=== PATIENT | female | born 1940 | race Caucasian/White ===

== ENCOUNTER 2018-02-12 12:40 | Outpatient (CLI) | payer OTHER, SELFPAY ==
--- NOTE | 2018-02-12 12:44 | DI.RAD.S_ITS ---
PROCEDURE: PAIN L INTERLAMINAR/CAUDAL INJ INDICATIONS: Spinal stenosis with lower extremity neurogenic claudication FINDINGS: Fluoroscopic spot filming was performed to verify placement of spinal needles at the left paramedian interlaminar notch of L4-5, as labeled on the films. Appropriate location(s) of the needle tip(s) was confirmed by injection of iodinated contrast. IMPRESSION: Successful posterior left paramedian L4-5 interlaminar notch for epidural steroid injection. Dictated by: Jorge Luis Logan M.D. on 02/12/2018 at 16:32 Approved by: Jorge Luis Logan M.D. on 02/12/2018 at 16:33
[2018-02-12 13:16] VITALS: BP 166/76; PULSE 77; RESP 18; TEMP 36.7; O2SAT 95
[2018-02-12 13:57] VITALS: BP 155/91; PULSE 87; RESP 23; O2SAT 98
--- NOTE | 2018-02-12 13:57 | PM.PROC.1 ---
Procedures Date/Time Date of procedure: 02/12/18 Time of procedure: 13:58 General Procedure description: PROVIDER: Duncan Park DO Operative Note PREOP DIAGNOSIS 1. HNP WITH RADICULAR FEATURES, 2. MULTILEVEL CENTRAL STENOSIS, POST OP DIAGNOSIS 1. HNP WITH RADICULAR FEATURES, 2. MULTILEVEL CENTRAL STENOSIS PROCEDURES 1. FLUORSCOPICALLY GUIDED CONTRAST CONTROLLED INTERLAMINAR EPIDURAL STEROID INJECTION -L4/5 PHYSICIAN: Duncan Park DO INDICATIONs: Maria M is referred by for treatment of Bilateral Foraminal Stenosis R>L LE symptoms. FINDINGS Multilevel Central Spinal Stenosis with Nerve Root Compression DESCRIPTION OF PROCEDURE Fluoroscopically guided, contrast-controlled L4/5 translaminar epidural steroid injection. Following denial of allergy and review of potential side effects and complications, including, but not necessarily limited to, infection, allergic reaction, local tissue breakdown, temporary as well as permanent nerve injury, paralysis, stroke and possible , the patient indicated that the patient understood and agreed to proceed. An informed consent document was signed by the patient, witnessed by a nurse, and placed in the patient's chart. Additionally, other treatment options including modalities, medications, and physical therapy were reviewed with the patient. After review of previous anaesthesic history and IV conscious sedation the patient was deemed safe to proceed with todays procedure with IV conscious sedation as ASA class II designation. Safety time-out was performed to confirm patient ID, procedure to be performed and site of procedure. IV sedation was accomplished with a combination of 3mg was administered by the RN after DO order, titrated to patient comfort during the course of the procedure while the patient remained responsive to all verbal commands. In the prone position, following sterile prep and drape of the lumbar region, the L4/5 translaminar space was identified fluoroscopically. The skin was anesthetized via a 25-gauge, 1.5-inch needle with 1% lidocaine solution. At this point, a 22-gauge short bevel spinal needle was atraumatically introduced and advanced under fluoroscopic guidance into the region of the L4/5 translaminar space. Depth was confirmed on lateral view. Radiological data, including multiple fluoroscopic views of the lumbar spine, reveal a spinal needle at the L4/5 translaminar space. Lateral views then show placement of the needle in the epidural space. Subsequent views show contrast material flowing superiorly and inferiorly in the epidural space. No vascular or intrathecal uptake is observed. At this point, using loss of resistance technique with saline and air, the epidural space was entered. This was confirmed following negative aspiration with injection of approximately 1.5 cc of Isovue 200, showing excellent epidural flow without vascular or intrathecal uptake. At this point, 1 cc of 1% lidocaine solution combined with 3 cc or 20 mg of dexamethasone and 80mg Depo medrol was injected without incident. The procedure tolerated the procedure well without signs or symptoms of complications prior to transfer to the recovery area continued monitoring without incident. The patient was then transferred to the recovery area where they were observed for an appropriate period of time after the injection. The patient reported a VAS score of 6 prior to the procedure and a post-procedure VAS of 0. Total Fluoroscopy Time: 11.8 seconds Total Conscious Sedation Time: 24min POST OP INSTRUCTIONS The patient was provided a Pain Log to continue to record their response to the target-specific procedure prior to follow-up visit with their referring physician. Additionally, specific post-injection care instructions and a contact number to our office were provided if concerns arise regarding possible complications associated with the procedure are suspected. Duncan Park DO Complications: none
--- NOTE | 2018-02-12 14:00 | P.PCN_ITS ---
Procedures Date/Time Date of procedure: 02/12/18 Time of procedure: 13:58 General Procedure description: PROVIDER: Duncan Park DO Operative Note PREOP DIAGNOSIS 1. HNP WITH RADICULAR FEATURES, 2. MULTILEVEL CENTRAL STENOSIS, POST OP DIAGNOSIS 1. HNP WITH RADICULAR FEATURES, 2. MULTILEVEL CENTRAL STENOSIS PROCEDURES 1. FLUORSCOPICALLY GUIDED CONTRAST CONTROLLED INTERLAMINAR EPIDURAL STEROID INJECTION -L4/5 PHYSICIAN: Duncan Park DO INDICATIONs: Maria M is referred by for treatment of Bilateral Foraminal Stenosis R> L LE symptoms. FINDINGS Multilevel Central Spinal Stenosis with Nerve Root Compression DESCRIPTION OF PROCEDURE Fluoroscopically guided, contrast-controlled L4/5 translaminar epidural steroid injection. Following denial of allergy and review of potential side effects and complications, including, but not necessarily limited to, infection, allergic reaction, local tissue breakdown, temporary as well as permanent nerve injury, paralysis, stroke and possible , the patient indicated that the patient understood and agreed to proceed. An informed consent document was signed by the patient, witnessed by a nurse, and placed in the patient's chart. Additionally, other treatment options including modalities, medications, and physical therapy were reviewed with the patient. After review of previous anaesthesic history and IV conscious sedation the patient was deemed safe to proceed with todays procedure with IV conscious sedation as ASA class II designation. Safety time-out was performed to confirm patient ID, procedure to be performed and site of procedure. IV sedation was accomplished with a combination of 3mg was administered by the RN after DO order , titrated to patient comfort during the course of the procedure while the patient remained responsive to all verbal commands. In the prone position, following sterile prep and drape of the lumbar region, the L4/5 translaminar space was identified fluoroscopically. The skin was anesthetized via a 25-gauge, 1.5-inch needle with 1% lidocaine solution. At this point, a 22-gauge short bevel spinal needle was atraumatically introduced and advanced under fluoroscopic guidance into the region of the L4/5 translaminar space. Depth was confirmed on lateral view. Radiological data, including multiple fluoroscopic views of the lumbar spine, reveal a spinal needle at the L4/5 translaminar space. Lateral views then show placement of the needle in the epidural space. Subsequent views show contrast material flowing superiorly and inferiorly in the epidural space. No vascular or intrathecal uptake is observed. At this point, using loss of resistance technique with saline and air, the epidural space was entered. This was confirmed following negative aspiration with injection of approximately 1.5 cc of Isovue 200, showing excellent epidural flow without vascular or intrathecal uptake. At this point, 1 cc of 1 % lidocaine solution combined with 3 cc or 20 mg of dexamethasone and 80mg Depo medrol was injected without incident. The procedure tolerated the procedure well without signs or symptoms of complications prior to transfer to the recovery area continued monitoring without incident. The patient was then transferred to the recovery area where they were observed for an appropriate period of time after the injection. The patient reported a VAS score of 6 prior to the procedure and a post- procedure VAS of 0. Total Fluoroscopy Time: 11.8 seconds Total Conscious Sedation Time: 24min POST OP INSTRUCTIONS The patient was provided a Pain Log to continue to record their response to the target-specific procedure prior to follow-up visit with their referring physician. Additionally, specific post-injection care instructions and a contact number to our office were provided if concerns arise regarding possible complications associated with the procedure are suspected. Duncan Park DO Complications: none
[2018-02-12 14:05] VITALS: BP 151/81; PULSE 83; RESP 22; O2SAT 98
[2018-02-12 14:10] VITALS: BP 146/76; PULSE 84; RESP 19; O2SAT 99
[2018-02-12 14:21] VITALS: BP 136/68; PULSE 75; RESP 16; O2SAT 98
[2018-02-12] MEDS: MIDAZOLAM 5 MG/5 ML VIAL IV (14:23)
[2018-02-12] MEDS: BUPIVACAINE 0.25% (PF) VIAL 2 ML INJ (14:23)
[2018-02-12] MEDS: IOPAMIDOL 15 ML VIAL 3 ML INJ (14:24)
[2018-02-12] MEDS: DEXAMETHASONE 10 MG/ML VIAL 20 MG INJ (14:24)
[2018-02-12] MEDS: methylPREDNISolone acetate 80 MG/ML VIAL INJ (14:25)
[2018-02-12 14:26] VITALS: BP 140/73; PULSE 76; RESP 18; O2SAT 98
== END 2018-02-12 15:02 | disposition home or self-care (01) ==
LOC: RAD 12:42
PROVIDERS: PCP Internal Medicine; Visit Provider Physical Medicine & Rehabilitation
DX: M51.16 Intervertebral disc disorders with radiculopathy, lumbar region (principal); M48.062 Spinal stenosis, lumbar region with neurogenic claudication
CPT/HCPCS: 62323; 99152; J1040; J1100; J2250

== ENCOUNTER → 2018-12-17 11:04 | Outpatient (CLI) | payer OTHER, SELFPAY ==
--- NOTE | 2018-12-17 11:09 | DI.RAD.S_ITS ---
PROCEDURE: XR LUMBAR SPINE MIN 4V INDICATIONS: Increased LBP s/p fall TECHNIQUE: 5 views of the lumbar spine were acquired. COMPARISON: None. FINDINGS: Bones: 5 nonrib-bearing vertebrae are present. There is normal bony alignment. No vertebral body compression fractures. No suspicious bony lesions. Degenerative disc disease along the lumbosacral spine is moderately severe and most pronounced over the lower half. At L4-5 and L5-S1 near [id number] articulation at the endplates can be seen. Facet osteoarthritis is moderately severe to severe from L3 inferiorly. Multilevel spinal and foraminal stenosis would be expected especially at L5-S1. Soft tissues: Overlying bowel gas pattern is normal. No suspicious soft tissue calcifications. Oblique images: No pars defects. IMPRESSION: Quite severe degenerative disc disease and facet osteoarthritis of the lower half of the LS-spine and most pronounced at L5-S1 where significant spinal and foraminal stenosis would be expected. Quality of visualization is somewhat limited by the hyperostosis of the degenerative changes and for this reason followup by MR scanning may be warranted. Dictated by: Jorge Luis Logan M.D. on 12/17/2018 at 12:33 Approved by: Jorge Luis Logan M.D. on 12/17/2018 at 12:35
== END ==
PROVIDERS: PCP Internal Medicine; Visit Provider Physical Medicine & Rehabilitation
DX: M54.5 Low back pain (principal); M51.36 Other intervertebral disc degeneration, lumbar region; M51.37 Other intervertebral disc degeneration, lumbosacral region; M47.816 Spondylosis without myelopathy or radiculopathy, lumbar region; M47.817 Spondylosis without myelopathy or radiculopathy, lumbosacral region
CPT/HCPCS: 72110

== ENCOUNTER 2019-01-01 10:52 | Outpatient (CLI) | payer OTHER, SELFPAY ==
[2019-01-01] VITALS (7 sets, daily range): BP systolic 153–183; BP diastolic 61–86; PULSE 58–84; RESP 16–18; TEMP 36.5; O2SAT 95–99
--- NOTE | 2019-01-01 10:55 | DI.RAD.S_ITS ---
PROCEDURE: PAIN L/SI FACET INJ/BLK 1STL INDICATIONS: SPONDYLOSIS FINDINGS: Fluoroscopic spot filming was performed to verify placement of spinal needles at the L4-L5 and L5-S1 level(s), as labeled on the films. Appropriate location(s) of the needle tip(s) was confirmed by injection of iodinated contrast. Dictated by: Zak Vilchis M.D. on 01/02/2019 at 10:05 Approved by: Zak Vilchis M.D. on 01/02/2019 at 10:12
[2019-01-01] MEDS: fentaNYL 100 MCG/2 ML INJ 50 MCG IV (13:30)
[2019-01-01] MEDS: MIDAZOLAM 5 MG/5 ML VIAL IV (13:30)
[2019-01-01] MEDS: BUPIVACAINE 0.5% (PF) VIAL 2 ML INJ (13:34)
[2019-01-01] MEDS: BETAMETHASONE 30 MG/5 ML MDV 12 MG INJ (13:35)
[2019-01-01] MEDS: IOPAMIDOL 15 ML VIAL 3 ML INJ (13:35)
[2019-01-01] MEDS: LIDOCAINE 1% 20 ML INJ 10 ML INJ (13:35)
--- NOTE | 2019-01-01 13:39 | PC.NURSE ---
pt tolerated procedure well. Able to get off table with standby assist. Transferred pt via wheelchair to pre procedure room awake and alert for continued monitoring with Lexi AGUIRRE.
--- NOTE | 2019-01-01 13:52 | PC.NURSE ---
ACCEPTED CARE OF PT IN POST PROC AREA IN STABLE CONDITION
--- NOTE | 2019-01-06 15:45 | P.PCN_ITS ---
Procedures Date/Time Date of procedure: 01/01/19 Time of procedure: 13:44 General Procedure description: PREOP DIAGNOSIS 1. FACET ARTHROPATHY 2. AXIAL LBP 3. MULTILEVEL DDD POST OP DIAGNOSIS 1. FACET ARTHROPATHY 2. AXIAL LBP 3. MULTILEVEL DDD PROCEDURES 1. FLUORSCOPICALLY GUIDED CONTRAST CONTROLLED FACET JOINT INJECTIONS BILATERAL L4/5, L5/S1 PHYSICIAN: Duncan Park, DO INDICATIONS Maria M is referred by Dr. Douglas for treatment of Axial LBP FINDINGS Multilevel Facet Arthropathy with Clinically significant axial LBP DESCRIPTION OF PROCEDURE Fluoroscopically guided, contrast-controlled bilateral L4/5, L5/S1 facet joint injections. Following review of allergy and review of potential side effects and complications, including, but not necessarily limited to, infection, allergic reaction, local tissue breakdown, stroke, temporary or permanent nerve injury, paralysis, and possible , the patient indicated that the patient understood and agreed to proceed. An informed consent document was signed by the patient, witnessed by a nurse, and placed in the patient's chart. Additionally, other treatment options including medications, modalities, and physical therapy were reviewed with the patient. After review of previous anaesthesic history and IV conscious sedation the patient was deemed safe to proceed with todays procedure with IV conscious sedation as ASA class II designation. Safety time-out was performed to confirm patient ID, procedure to be performed and site of procedure. IV sedation was accomplished with a combination of 2mg of Versed and 50mcg of Fentanyl was administered by the RN after DO order, titrated to patient comfort during the course of the procedure while the patient remained responsive to all verbal commands In the prone position, following sterile prep and drape of the lumbar region, the posterior aspect of the L4/5, L5/S1 facet joints were identified fluoroscopically. The skin was anesthetized via a 25-gauge 1.5-inch needle with 1% lidocaine solution into the corresponding facet joints. At this point, a 22- gauge 3.5-inch spinal needle was atraumatically introduced and advanced under fluoroscopic guidance into the corresponding facet joints. Following negative aspiration, injections of approximately 0.2-cc of Isovue 200 confirmed interarticular placement without vascular uptake. The identical procedure was then performed at the L4/5, L5/S1 facet joints on the left. Radiological data, including multiple fluoroscopic views of the lumbosacral spine, reveal a spinal needle at the L4/5, L5/S1 facet joints bilaterally. Subsequent views show flow of contrast material both superiorly and inferiorly within the joint space without vascular or intrathecal uptake. At this point, a total of 0.5 cc including a mixture of 0.25cc Marcaine and 0.25cc betamethasone was injected without complication into each of the corresponding facet joints. The patient tolerated the procedure well without signs or symptoms of complications prior to transfer to the recovery area continued monitoring without incident. The patient was then transferred to the recovery area where they were observed for an appropriate period of time after the injection. The patient reported a VAS score of 7 prior to the procedure and a post- procedure VAS of 0. Total Fluoroscopy Time: 20.3 seconds Total Conscious Sedation Time: 24min POST OP INSTRUCTIONS The patient was provided a Pain Log to continue to record their response to the target-specific procedure prior to follow-up visit with their referring physician. Additionally, specific post-injection care instructions and a contact number to our office were provided if concerns arise regarding possible complications associated with the procedure are suspected. Duncan Park DO Complications: none
== END 2019-01-01 14:27 | disposition home or self-care (01) ==
LOC: RAD 10:53
PROVIDERS: PCP Internal Medicine; Visit Provider Physical Medicine & Rehabilitation
DX: M47.816 Spondylosis without myelopathy or radiculopathy, lumbar region (principal); M47.817 Spondylosis without myelopathy or radiculopathy, lumbosacral region; M54.5 Low back pain; M51.36 Other intervertebral disc degeneration, lumbar region; M51.37 Other intervertebral disc degeneration, lumbosacral region
CPT/HCPCS: 64493; J0702; J2250; J3010

== ENCOUNTER 2019-06-02 14:57 | Outpatient (CLI) | payer OTHER, SELFPAY ==
[2019-06-02] VITALS (8 sets, daily range): BP systolic 155–177; BP diastolic 71–98; PULSE 55–78; RESP 16–18; TEMP 36.7; O2SAT 96–100
--- NOTE | 2019-06-02 14:59 | DI.RAD.S_ITS ---
PROCEDURE: PAIN L/S FACET INJ/BLK 1ST SINGH COMPARISON: None. INDICATIONS: SPONDYLOSIS FINDINGS: Right-sided needle localization has been performed initially and then left-sided, 4 bilateral L4, L5 and S1 medial branch block procedures. IMPRESSION: Appropriate needle tip localization bilaterally for medial branch block procedures bilaterally as discussed. A total of 6 localizations therefore was performed. Dictated by: Jorge Luis Logan M.D. on 06/02/2019 at 16:27 Approved by: Jorge Luis Logan M.D. on 06/02/2019 at 16:28
[2019-06-02] MEDS: MIDAZOLAM 5 MG/5 ML VIAL IV (15:40)
[2019-06-02] MEDS: BUPIVACAINE 0.5% (PF) VIAL 2 ML INJ (15:49)
[2019-06-02] MEDS: LIDOCAINE 1% 20 ML 10 ML INJ (15:49)
[2019-06-02] MEDS: IOPAMIDOL 15 ML VIAL 3 ML INJ (15:49)
[2019-06-02] MEDS: BETAMETHASONE 30 MG/5 ML MDV 12 MG INJ (15:50)
--- NOTE | 2019-06-02 15:55 | PC.NURSE ---
ASSISTING PT OFF TABLE AND TRANSPORTING TO POST PROC AREA IN STABLE CONDITION.
--- NOTE | 2019-06-02 16:00 | P.PCN_ITS ---
Procedures Date/Time Date of procedure: 06/02/19 Time of procedure: 16:00 General Procedure description: Procedure description: 1. FACET ARTHROPATHY PROCEDURES: 1. BILATERAL- L4, L5 and S1 MB BLOCKS PHYSICIAN: DO JAXON Correia Maria M is referred by COLEMAN Lawrence for treatment of Bilateral Axial LBP. DESCRIPTION OF PROCEDURE Fluoroscopically guided, contrast-controlled bilateral L4, L5 and S1 medial branch blocks with 0.5cc of 0.5% Marcaine. Following review of allergy and review of potential side effects and complications, including, but not necessarily limited to, infection, allergic reaction, local tissue breakdown, nerve injury, paralysis, stroke and possible , the patient indicated that the patient understood and agreed to proceed. An informed consent document was signed by the patient, witnessed by a nurse, and placed in the patient's chart. After review of previous anaesthesic history and IV conscious sedation the patient was deemed safe to proceed with todays procedure with IV conscious sedation as ASA class II designation. Safety time-out was performed to confirm patient ID, procedure to be performed and site of procedure. IV sedation was accomplished with a combination of 2mg of Versed was administered by the RN after DO order, titrated to patient comfort during the course of the procedure while the patient remained responsive to all verbal commands In the prone position, following sterile prep and drape of the lumbar region, the right L4, L5 and S1 anatomical location of the medial branch of the dorsal ramus was identified fluoroscopically. Subsequently an anesthetic skin wheal using 1% lidocaine solution was initiated at each of the anatomical spots. Subsequently then a 22-gauge 3.5-inch spinal needle was atraumatically introduced and advanced under fluoroscopic guidance at each of the corresponding sites at the right L4, L5 and S1 MB. After negative aspiration, 0.2 cc of Isovue 200 was injected, confirming placement without vascular or intrathecal uptake. Subsequently then 0.5 cc of 0.5% Marcaine solution was injected at each of the corresponding sites at the right L4, L5 and S1 medial branch locations. The identical procedure was replicated on the left. The patient tolerated the procedure well without signs or symptoms of complications prior to transfer to the recovery area continued monitoring without incident. Post-procedure, the patient was monitored initiating provocative activities to measure the amount of relief from block of the facetogenic pain. The patient reported a VAS of 7 prior to the procedure and a post-procedure VAS of 1. It has been a pleasure to assist in the diagnostic and therapeutic care of your patient. Total Fluoroscopy Time: 24.8 seconds Total Conscious Sedation Time: 24min POST OP INSTRUCTIONS The patient was provided with a Pain Log to complete over the next several hours and subsequent days prior to the patient's follow up with the ordering physician. If the patient has labor service representative relief to the solution applied, then they may be a candidate for medial branch rhizotomy. The patient is aware, was provided, once again, with a Pain Log and will follow up with the referring physician for review and clinical correlation Duncan Park DO Complications: none
--- NOTE | 2019-06-02 16:10 | PC.NURSE ---
Post procedure note: Patient arrived for post procedure monitoring at 1603. Drowsy but awake. Able to stand and transfer from w/c to recliner with stand by assist. Hand off report received from Balwinder Vincent RN. Pain level 0/10. VSS with elevated BP same as Preop. O2 sat WNL. Continue with post procedure monitoring.
== END 2019-06-02 16:25 | disposition home or self-care (01) ==
PROVIDERS: PCP Nurse Practitioner; Visit Provider Physical Medicine & Rehabilitation
DX: M47.816 Spondylosis without myelopathy or radiculopathy, lumbar region (principal); M47.817 Spondylosis without myelopathy or radiculopathy, lumbosacral region; M54.5 Low back pain
CPT/HCPCS: 64493; 64494; 99152; J0702; J2250; J3010

== ENCOUNTER → 2019-11-19 10:47 | Outpatient (CLI) | payer OTHER, SELFPAY ==
--- NOTE | 2019-11-19 10:49 | DI.MRI.S_ITS ---
PROCEDURE: MR CERVICAL SPINE WO CON INDICATIONS: Cervical radiculopathy TECHNIQUE: Noncontrast sagittal T1 spin echo and T2 fast spin echo, sagittal STIR, foraminal oblique sagittal T2 fast spin echo, and axial gradient echo or T2 fast spin echo through the cervical spine. COMPARISON: None. FINDINGS: Image quality: Excellent. Alignment and Curvature: Straightening of the normal lordotic curvature. Grade 1 anterolisthesis of C4 on C5 Bone Marrow: Multilevel degenerative endplate sclerosis and spurring. Diffuse facet arthropathy. Spinal Cord: Visualized spinal cord has normal size and signal. No cerebellar tonsillar herniation. Paraspinous Soft Tissues: No paravertebral masses. Prevertebral soft tissues are normal in thickness. C2-C3: No canal stenosis. No right foraminal narrowing. Moderate left foraminal stenosis with nerve root compression. C3-C4: Mild canal narrowing. Moderate right foraminal stenosis with nerve root compression. Mild/moderate left foraminal stenosis with nerve root compression. C4-C5: Mild canal narrowing. Severe bilateral foraminal stenosis with nerve root compression. C5-C6: Mild to moderate canal narrowing with effacement of the anterior and posterior thecal sac. Moderate to severe right and severe left foraminal stenosis with nerve root compression on both sides C6-C7: Mild canal narrowing. Mild left foraminal narrowing. Moderate to severe right foraminal stenosis with nerve root compression. C7-T1: No canal stenosis. No right foraminal narrowing. Moderate left foraminal stenosis with nerve root compression. Also noted at T1-T2 is moderate left foraminal stenosis with slight nerve root compression. IMPRESSION: Straightening of the normal lordotic curvature. Grade 1 anterolisthesis of C4 on C5 Diffuse bilateral foraminal stenoses as detailed above by spinal level. Mild/moderate C5-C6 canal narrowing Dictated by: Zak Vilchis M.D. on 11/19/2019 at 11:48 Approved by: Zak Vilchis M.D. on 11/19/2019 at 12:40
== END ==
PROVIDERS: PCP Nurse Practitioner; Referring Provider Physical Medicine & Rehabilitation; Visit Provider Physical Medicine & Rehabilitation
DX: M54.12 Radiculopathy, cervical region (principal); M43.12 Spondylolisthesis, cervical region; M48.02 Spinal stenosis, cervical region
CPT/HCPCS: 72141

== ENCOUNTER → 2020-01-16 09:43 | Outpatient (CLI) | payer OTHER, SELFPAY ==
[2020-01-17 08:11] LABS: COVID19 Sendout Not Detected (Not Detect)
== END ==
PROVIDERS: PCP Nurse Practitioner; Visit Provider Nurse Practitioner
DX: Z01.812 Encounter for preprocedural laboratory examination (principal)
CPT/HCPCS: 87635

== ENCOUNTER 2020-01-19 09:22 | Outpatient (CLI) | payer OTHER, SELFPAY ==
[2020-01-19] VITALS (10 sets, daily range): BP systolic 144–194; BP diastolic 61–103; PULSE 69–81; RESP 14–17; TEMP 36.5; O2SAT 96–100
--- NOTE | 2020-01-19 09:25 | DI.RAD.S_ITS ---
PROCEDURE: PAIN C/T INTERLAMINAR INJECT INDICATIONS: SPINAL STENOSIS FINDINGS: Fluoroscopic spot filming was performed to verify placement of spinal needles at the C6-C7 level(s), as labeled on the films. Appropriate location(s) of the needle tip(s) was confirmed by injection of iodinated contrast. IMPRESSION: Successful needle tip localization for epidural steroid injection through the interlaminar space at C6-C7. Dictated by: Jorge Luis Logan M.D. on 01/19/2020 at 12:40 Approved by: Jorge Luis Logan M.D. on 01/19/2020 at 12:53
[2020-01-19] MEDS: MIDAZOLAM 5 MG/5 ML VIAL IV (10:53)
[2020-01-19] MEDS: DEXAMETHASONE 10 MG/ML VIAL 20 MG INJ (10:58)
[2020-01-19] MEDS: BUPIVACAINE 0.25% (PF) VIAL 2 ML INJ (10:58)
[2020-01-19] MEDS: IOPAMIDOL 15 ML VIAL 3 ML INJ (10:58)
--- NOTE | 2020-01-19 11:15 | PM.PROC.IR.1 ---
Date/Time/Diagnoses Pre-procedure diagnosis: 1. CERVICAL STENOSIS, 2. CERVICAL HNP WITH UPPER EXTREMITY RADICULAR FEATURES, Post-procedure diagnosis: same Procedure Notes Procedure: 1. FLUORSCOPICALLY GUIDED CONTRAST CONTROLLED INTERLAMINAR EPIDURAL STEROID INJECTION - C6/7 TL ART Indications: Maria M is referred by COLEMAN Lawrence for treatment of Cervical HNP with Upper Extremity Paresthesias. Physician: Duncan Park Complications: none Procedure in detail & Post-procedure care: FINDINGS Cervical Stenosis due to disc deterioration and nerve root irritation and nerve root irritation DESCRIPTION OF PROCEDURE Fluoroscopically guided, contrast-controlled C6/7 translaminar epidural steroid injection with conscious sedation. Following review of allergy and review of potential side effects and complications, including, but not necessarily limited to, infection, allergic reaction, local tissue breakdown, temporary as well as permanent nerve injury, stroke, paralysis, and possible , the patient indicated that patient understood and agreed to proceed. An informed consent document was signed by the patient, witnessed by a nurse, and placed in the patient's chart. Additionally, other treatment options including modalities, medications, and physical therapy were reviewed with the patient. After review of previous anaesthesic history and IV conscious sedation the patient was deemed safe to proceed with today?s procedure with IV conscious sedation as ASA class II designation. Safety time-out was performed to confirm patient ID, procedure to be performed and site of procedure. IV sedation was accomplished with a combination of 3mg of Versed administered by the RN after DO order, titrated to patient comfort during the course of the procedure while the patient remained responsive to all verbal commands. In the prone position, following sterile prep and drape of the cervical region, the C6/7 translaminar space was identified fluoroscopically. The skin was anesthetized via a 25-gauge 1.5-inch needle with 1% lidocaine solution. At this point, a 25-gauge, 2.5-inch short bevel spinal needle was atraumatically introduced and advanced under fluoroscopic guidance into epidural space at the C6/7 translaminar space. Depth was confirmed on lateral view. Radiological data, including multiple fluoroscopic views of the cervical spine, reveal a spinal needle at the C6/7 translaminar space. Lateral views then show placement of the needle in the epidural space. Subsequent views show contrast material flowing superiorly and inferiorly in the epidural space. DSA fluoroscopy with live contrast injection, once again, confirmed no vascular or intrathecal uptake. At this point, using loss of resistance technique with saline and air, the epidural space was entered. Following negative aspiration, injection of approximately 1.5 cc of Isovue-200 with live fluoroscopy in the AP view confirmed epidural flow in the epidural space without vascular or intrathecal uptake observed. Subsequently, a test dose of 1cc of 1% lidocaine solution was injected and patient was observed for two minutes without signs or symptoms of complications, including abdominal pain, shortness of breath, bilateral upper or lower extremity weakness, nausea and vomiting, prior to steroid injection. At this point, 2cc or 20mg of dexamethasone was then injected without incident. The patient tolerated the procedure well without signs or symptoms of complications prior to being transferred to the recovery area for further monitoring, The patient was then transferred to the recovery area where they were observed for an appropriate period of time after the injection. The patient reported a VAS score of 6 prior to the procedure and a post-procedure VAS of 0. POST OP INSTRUCTIONS The patient was provided a Pain Log to continue to record their response to the target-specific procedure prior to follow-up visit with the referring provider. Additionally, specific post-injection care instructions and a contact number to our office were provided if concerns arise regarding possible complications associated with the procedure are suspected.
--- NOTE | 2020-01-19 11:43 | PC.NURSE ---
1123 Pt arrived to preproc room via wc, kim transfer from wc to chair, requested coffee and cookies, resumed monitoring by TIMOTHY Jc
--- NOTE | 2020-01-19 14:19 | PC.NURSE ---
Pt tolerated procedure well. No issues. VSS stable upon transfer to post procedure durign handoff to TIMOTHY Jc. IV Fent and Midazolam given by TIMOTHY Corona, all others by Dr. Park.
== END 2020-01-19 11:39 | disposition home or self-care (01) ==
LOC: RAD 09:24
PROVIDERS: PCP Nurse Practitioner; Referring Provider Physical Medicine & Rehabilitation; Visit Provider Physical Medicine & Rehabilitation
DX: M48.02 Spinal stenosis, cervical region (principal); M50.123 Cervical disc disorder at C6-C7 level with radiculopathy; R20.2 Paresthesia of skin
CPT/HCPCS: 62321; 99152; J1100; J2250; J3010

== ENCOUNTER → 2020-04-02 11:05 | Outpatient (CLI) | payer OTHER, SELFPAY ==
[2020-04-03 15:45] LABS: COVID19 Sendout Not Detected (Not Detect)
== END ==
PROVIDERS: PCP Nurse Practitioner; Visit Provider Physician Assistant
DX: Z11.59 Encounter for screening for other viral diseases (principal)
CPT/HCPCS: 87635

== ENCOUNTER 2020-04-05 10:38 | Outpatient (CLI) | payer OTHER, SELFPAY ==
--- NOTE | 2020-04-05 10:40 | DI.RAD.S_ITS ---
PROCEDURE: PAIN C/T FACET INJ/BLK 1ST L INDICATIONS: SPINAL STENOSIS COMPARISON: None. FINDINGS: Fluoroscopic spot filming was performed to verify placement of spinal needles at the right C4-C5 and C5-C6 facets level(s), as labeled on the films. Appropriate location(s) of the needle tip(s) was confirmed by injection of iodinated contrast. IMPRESSION: [place] positioned at the right C4-C5 and C5-C6 facets. Dictated by: Courtney Leary MD, PhD on 04/05/2020 at 14:14 Approved by: Courtney Leary MD, PhD on 04/05/2020 at 14:15
[2020-04-05 11:14] VITALS: BP 185/84; PULSE 70; RESP 16; TEMP 36.4; O2SAT 96
[2020-04-05 11:27] VITALS: BP 170/80; PULSE 80; RESP 16; O2SAT 99
[2020-04-05] MEDS: MIDAZOLAM 5 MG/5 ML VIAL IV (11:28)
[2020-04-05 11:30] VITALS: BP 170/77; PULSE 76; RESP 16; O2SAT 95
[2020-04-05] MEDS: BUPIVACAINE 0.5% (PF) VIAL 2 ML INJ (11:30)
[2020-04-05] MEDS: DEXAMETHASONE 10 MG/ML VIAL 30 MG INJ (11:30)
[2020-04-05 11:35] VITALS: BP 164/70; PULSE 74; RESP 16; O2SAT 99
--- NOTE | 2020-04-05 11:50 | P.PCN_ITS ---
Date/Time/Diagnoses Date of procedure: 04/05/20 Time of procedure: 11:51 Pre-procedure diagnosis: 1. FACET ARTHROPATHY 2. AXIAL NECK PAIN Post-procedure diagnosis: same Procedure Notes Procedure: 1. FLUOROSCOPICALLY GUIDED, CONTRAST-CONTROLLED RIGHT C4/5, C5/6 AND C6/7 FACET JOINT INJECTIONS WITH CONSCIOUS SEDATION. Indications: Maria M is referred by COLEMAN Lawrence for treatment of Axial Neck Pain Physician: Duncan Park Total Fluoroscopy time (seconds): 16 Total sedation minutes: 12 Complications: none Procedure in detail & Post-procedure care: DESCRIPTION OF PROCEDURE Fluoroscopically guided, contrast-controlled right C4/5, C5/6 and C6/7 facet joint injections with conscious sedation. Following review of allergy and review of potential side effects and complications, including, but not necessarily limited to, infection, allergic reaction, local tissue breakdown, stroke, temporary or permanent nerve injury and paralysis, the patient indicated that the patient understood and agreed to proceed. An informed consent document was signed by the patient, witnessed by a nurse, and placed in the patient's chart. Additionally, other treatment options including medications, modalities, and physical therapy were reviewed with the patient. After review of previous anaesthesic history and IV conscious sedation the patient was deemed safe to proceed with today?s procedure with IV conscious sedation as ASA class II designation. Safety time-out was performed to confirm patient ID, procedure to be performed and site of procedure. IV sedation was accomplished with a combination of 3mg of Versed was administered by the RN after DO order, titrated to patient comfort during the course of the procedure while the patient remained responsive to all verbal commands In the prone position, following sterile prep and drape of the cervical spine region, the posterior aspect of the right C5/6 and C6/7 facet joints were identified fluoroscopically. The skin was anesthetized via a 25-gauge 1.5-inch needle with 1% lidocaine solution into the corresponding facet joints. At this point, a 25-gauge 2.5-inch spinal needle was atraumatically introduced and advanced under fluoroscopic guidance into the corresponding facet joints. Following negative aspiration, injections of approximately 0.2-cc of Isovue 200 confirmed interarticular placement without vascular uptake. At this point, a total of 1cc including 0.5cc or 5mg of dexamethasone combined with 0.5cc of 1% lidocaine solution was injected without complication into each of the corresponding facet joints. The procedure tolerated the procedure well without signs or symptoms of complications prior to transfer to the recovery area continued monitoring without incident. The patient was then transferred to the recovery area where they were observed for an appropriate period of time after the injection. The patient reported a VAS score of 7 prior to the procedure and a post- procedure VAS of 0. POST OP INSTRUCTIONS They were provided a Pain Log to continue to record their response to the target-specific procedure prior to their follow-up visit with their referring physician. Additionally, specific post-injection care instructions and a contact number to our office were provided if concerns arise regarding possible complications associated with the procedure are suspected.
[2020-04-05 11:55] VITALS: BP 192/90; PULSE 78; RESP 15; O2SAT 96
[2020-04-05] MEDS: IOPAMIDOL 15 ML VIAL 3 ML INJ (11:57)
[2020-04-05 12:00] VITALS: BP 179/79; PULSE 78; RESP 16; O2SAT 95
== END 2020-04-05 12:15 | disposition home or self-care (01) ==
LOC: RAD 10:40
PROVIDERS: PCP Nurse Practitioner; Referring Provider Physical Medicine & Rehabilitation; Visit Provider Physical Medicine & Rehabilitation
DX: M47.812 Spondylosis without myelopathy or radiculopathy, cervical region (principal); M54.2 Cervicalgia
CPT/HCPCS: 64490; 64491; 64492; 99152; J1100; J2250; J3010

== ENCOUNTER → 2020-11-30 12:39 | Outpatient (CLI) | payer OTHER, SELFPAY ==
--- NOTE | 2020-11-30 12:41 | DI.RAD.S_ITS ---
PROCEDURE: XR WRIST RT MIN 3V INDICATIONS: wrist pain with djd TECHNIQUE: 4 views of the wrist were acquired. COMPARISON: None. FINDINGS: Bones: No acute fracture identified. There are marginal lucencies seen at the 2nd and 3rd MCP joints. Hook like osteophytes also noted. Severe 1st CMC and triscaphe joint degeneration. Soft tissues: There is faint chondrocalcinosis in the ulnocarpal compartment. IMPRESSION: Hook like osteophytes seen at the 2nd and 3rd MCP joints, with faint chondrocalcinosis in the ulnocarpal compartment. This finding raises the possibility of deposition arthropathy such as CPPD Marginal lucencies at the 2nd and 3rd metacarpal heads raising the possibility of erosions. Dictated by: Zak Vilchis M.D. on 11/30/2020 at 14:55 Approved by: Zak Viclhis M.D. on 11/30/2020 at 15:00
--- NOTE | 2020-11-30 12:41 | DI.RAD.S_ITS ---
PROCEDURE: XR LUMBAR SPINE MIN 4V INDICATIONS: lumbar radic TECHNIQUE: 5 views of the lumbar spine were acquired, including bilateral oblique views. COMPARISON: [facility], CR, XR LUMBAR SPINE MIN 4V, 12/17/2018, 11:29. FINDINGS: Bones: No fracture. Multilevel degenerative endplate sclerosis and spurring. Diffuse facet arthropathy. Grade 1 retrolisthesis of L1 on L2 and L2 on L3, L3 on L4 and L4 on L5. Lumbar levoscoliosis. Bilateral hip osteoarthritis. There is severe disc height loss at L1-L2, L2-L3, L3-L4. Mild disc height loss at L4-L5 and L5-S1. Oblique images: No pars defects. IMPRESSION: Lumbar levoscoliosis and multilevel spondylosis as above. Diffuse facet arthropathy Dictated by: Zak Vilchis M.D. on 11/30/2020 at 15:37 Approved by: Zak Vilchis M.D. on 11/30/2020 at 15:47
== END ==
PROVIDERS: PCP Family Medicine; Referring Provider Physical Medicine & Rehabilitation; Visit Provider Physical Medicine & Rehabilitation
DX: M47.817 Spondylosis without myelopathy or radiculopathy, lumbosacral region (principal); M19.031 Primary osteoarthritis, right wrist; M18.11 Unilateral primary osteoarthritis of first carpometacarpal joint, right hand; M16.0 Bilateral primary osteoarthritis of hip; M41.86 Other forms of scoliosis, lumbar region; M75.41 Impingement syndrome of right shoulder; M47.812 Spondylosis without myelopathy or radiculopathy, cervical region
CPT/HCPCS: 20611; 72110; 73110; 99214; J0702

== ENCOUNTER → 2021-01-02 13:24 | Outpatient (CLI) | payer OTHER, SELFPAY ==
[2021-01-02 16:15] LABS: COVID19 -Nasal RAPID Negative (Negative)
== END ==
PROVIDERS: PCP Family Medicine; Visit Provider Physician Assistant
DX: Z01.812 Encounter for preprocedural laboratory examination (principal); Z20.822 Contact with and (suspected) exposure to COVID-19
CPT/HCPCS: 87635

== ENCOUNTER 2021-01-03 10:37 | Outpatient (CLI) | payer OTHER, SELFPAY ==
[2021-01-03] VITALS (12 sets, daily range): BP systolic 126–194; BP diastolic 60–95; PULSE 60–77; RESP 11–22; TEMP 36.8; O2SAT 95–100
--- NOTE | 2021-01-03 10:38 | DI.RAD.S_ITS ---
PROCEDURE: PAIN L/S MED/LAT N RFA BILAT INDICATIONS: SPONDYLOSIS COMPARISON: [facility], CR, XR LUMBAR SPINE MIN 4V, 11/30/2020, 12:39. FINDINGS: Fluoroscopic spot filming was performed to verify placement of spinal needles at the L4, L5 and S1 level(s), as labeled on the films. Appropriate location(s) of the needle tip(s) was confirmed by injection of iodinated contrast. IMPRESSION: Fluoroscopy for pain management. Dictated by: Justo Hernández M.D. on 01/03/2021 at 17:20 Approved by: Justo Hernández M.D. on 01/03/2021 at 17:20
[2021-01-03] MEDS: fentaNYL 100 MCG/2 ML INJ 50 MCG IV (11:32)
[2021-01-03] MEDS: MIDAZOLAM 5 MG/5 ML VIAL IV (11:32)
[2021-01-03] MEDS: LIDOCAINE 1% 20 ML INJ (11:36)
[2021-01-03] MEDS: BUPIVACAINE 0.5% (PF) VIAL 5 ML INJ (11:36)
--- NOTE | 2021-01-03 12:12 | P.PCN_ITS ---
Date/Time/Diagnoses Date of procedure: 01/03/21 Time of procedure: 12:12 Pre-procedure diagnosis: 1. RECALCITRANT FACET ARTHROPATHY Post-procedure diagnosis: same Procedure Notes Procedure: 1. BILATERAL L4 AND L5 MEDIAL BRANCH RADIOFREQUENCY NEUROTOMY AND S1 DORSAL RAMUS BRANCH RADIOFREQUENCY NEUROTOMY Indications: Maria M is referred by Dr. Corona for treatment of facet arthropathy. Physician: Duncan Park Total Fluoroscopy time (seconds): 18 Total sedation minutes: 33 Complications: none Procedure in detail & Post-procedure care: DESCRIPTION OF PROCEDURE Bilateral L4 and L5 medial branch radiofrequency neurotomy and bilateral S1 dorsal ramus radiofrequency neurotomy under fluoroscopy with conscious sedation. The patient is well known to this clinic having undergone previous facet injections with good but temporary relief. The patient has experienced appropriate, concordant relief with previous facet and median branch blocks but the patient's pain has been recalcitrant to further conservative measures. Therefore, based upon the patient's relief and persistent symptoms, the patient is considered an appropriate candidate for facet rhizotomy. All of the patient's questions regarding the risks versus benefits of the procedure, including, but not limited to, bleeding, infection, temporary as well as lasting nerve injury, paralysis, stroke, and , as well treatment alternatives were answered to satisfaction. After obtaining informed consent, denial of pertinent drug allergies, as well as being made aware of the potential risks of bleeding, infection, spinal cord trauma, paralysis, temporary and permanent nerve damage, seizure, stroke, and possible , the patient was brought to the fluoroscopy suite and positioned prone on the fluoroscopy table. The lumbar region was prepped with Betadine and covered with a fenestrated drape in the usual sterile fashion. Appropriate monitors applied including pulse oximeter, pulse, and blood pressure for regular monitoring throughout the procedure. After review of previous anaesthesic history and IV conscious sedation the patient was deemed safe to proceed with today's procedure with IV conscious sedation as ASA class II designation. Safety time-out was performed to confirm patient ID, procedure to be performed and site of procedure. IV sedation was accomplished with a combination of 2mg of Versed and 50mcg of Fentanyl administered by the RN after DO order, titrated to patient comfort during the course of the procedure while the patient remained responsive to all verbal commands. After local infiltration using 1% lidocaine, under fluoroscopic guidance, a 10- cm RF insulated needle with a 10-mm active tip was positioned parallel to the junction of the right sacral ala and the superior articulating process where the S1 dorsal ramus resides. Needle placement was confirmed with motor stimulation of .5v on the right which produced local stimulation without radicular component. The stimulation was then increased to 2v with, once again, only local multifidus stimulation without radicular component. The needle was then removed and the identical procedure was performed along the length of the right L5 medial branch with motor stimulation at .7v on the right. The identical procedure was once again performed along the length of the right L4 medial branch with motor stimulation of .5v on the right. The medial branches were then anesthetised with 0.5% Marcaine. This was then followed by two discreet lesions performed at 80 degrees Celsius for 90 seconds each. The identical procedure was repeated on the left. The patient tolerated the procedure well without signs or symptoms of complications prior to transfer to the recovery area continued monitoring without incident. The patient was then transferred to the recovery area where they were observed for an appropriate period of time after the injection. The patient reported a VAS score of 9 prior to the procedure and a post-procedure VAS of 0. POST OP INSTRUCTIONS The patient was provided a Pain Log to continue to record the patient's response to the target-specific procedure prior to the patient's follow-up visit with the referring physician. Additionally, specific post-injection care instructions and a contact number to our office were provided if concerns arise regarding possible complications associated with the procedure are suspected.
== END 2021-01-03 12:33 | disposition home or self-care (01) ==
LOC: RAD 10:37
PROVIDERS: PCP Family Medicine; Referring Provider Physical Medicine & Rehabilitation; Visit Provider Physical Medicine & Rehabilitation
DX: M47.817 Spondylosis without myelopathy or radiculopathy, lumbosacral region (principal); M47.816 Spondylosis without myelopathy or radiculopathy, lumbar region
CPT/HCPCS: 64635; 64636; 99152; 99153; J2250; J3010

== ENCOUNTER → 2022-05-08 15:21 | Outpatient (CLI) | payer OTHER, SELFPAY ==
--- NOTE | 2022-05-08 15:23 | DI.MRI.S_ITS ---
PROCEDURE: MR LUMBAR SPINE WO CON INDICATIONS: Progressive Extension Biased LBP TECHNIQUE: Noncontrast sagittal T1 spin echo and T2 fast echo, sagittal STIR, and T2 fast spin echo through the lumbar spine. In cases with scoliosis, additional coronal T2 fast spin echo may be performed. COMPARISON: [facility], [place], MRI L-SPINE W/O CONTRAST, 03/20/2017, 10:15. [facility], [place], XR L-SPINE 2-3V, 02/26/2022, 13:59. FINDINGS: Image quality: This examination is limited by involuntary motion artifact. Alignment and Curvature: There is mild retrolisthesis seen at L2-L3, L3-L4, and L4-L5. Mild levoconvex scoliotic curvature is noted. Bone Marrow: Marrow is of normal overall signal. No acute vertebral body compression fractures. Spinal Cord: Conus medullaris terminates at the L1-L2 level. Visualized cord demonstrates normal signal and size. Paraspinous Soft Tissues: No paravertebral masses. T12-L1: Moderate loss of disc height is seen. Loss of disc signal is seen. Moderate generalized disc bulge is seen. Mild facet joint hypertrophy is seen. No significant neural foraminal or central canal narrowing can be seen. These degenerative changes are mildly progressed compared to 2017. L1-L2: At least moderate loss of disc height and disc signal can be seen. At least moderate disc bulge is seen. There is a superimposed central disc protrusion. Mild to moderate facet hypertrophy is seen. There is [id number] right-sided and no significant left-sided neural foraminal narrowing. Mild central canal narrowing is seen. These imaging findings have progressed compared to the prior study. L2-L3: At least moderate loss of disc height and disc signal can be seen. At least moderate disc bulge is seen, which is eccentric to the right. At least moderate facet hypertrophy is seen at this level. There is at least moderate right-sided and okoh-qe-[id number] left-sided neural foraminal narrowing. Moderate central canal narrowing is seen. These degenerative changes are worse than in 2017. L3-L4: Mild loss of disc height is seen. Loss of disc signal is seen. At least moderate disc bulge is seen at this level. There is a superimposed central disc protrusion. At least moderate facet hypertrophy is seen. There is at least moderate bilateral neural foraminal narrowing seen. There is severe central canal narrowing seen, as on series 5, image 19. These degenerative changes are clearly worse than in 2017. L4-L5: Moderate loss of disc height is seen. Loss of disc signal is seen. At least moderate disc bulge is seen, which is eccentric to the left. There is a central/left disc extrusion, with mild inferior migration of the disc material. Moderate facet joint hypertrophy is seen. Associated hypertrophy of the ligamentum flavum can be seen. There is moderate to severe left-sided neural foraminal narrowing, with a degree of compression upon the exiting left L4 nerve root. There is moderate right-sided neural foraminal narrowing. At least moderate central canal narrowing is seen. These degenerative changes are progressed compared to prior MRI. L5-S1: The disc height is well-preserved. Loss of disc signal is seen at this level. Mild to moderate disc bulge is seen. Prominent facet hypertrophy is seen. There is moderate to severe bilateral neural foraminal narrowing seen, left worse than right. There is a degree of compression seen upon the exiting nerve roots. Mild to moderate central canal narrowing is seen. These degenerative changes are mildly progressed compared to the prior. IMPRESSION: Multiple levels of prominent lumbar spine degenerative change are seen, which are worse than in 2017. There is severe central canal narrowing at the L3-L4 level. Several sites of significant neural foraminal narrowing can be seen, with associated exiting nerve root compression. Dictated by: Tommy Rojas M.D. on 05/08/2022 at 15:29 Approved by: Tommy Rojas M.D. on 05/08/2022 at 15:35
== END ==
PROVIDERS: PCP Family Medicine; Referring Provider Physical Medicine & Rehabilitation; Visit Provider Physical Medicine & Rehabilitation
DX: M47.817 Spondylosis without myelopathy or radiculopathy, lumbosacral region (principal); M47.816 Spondylosis without myelopathy or radiculopathy, lumbar region; M48.062 Spinal stenosis, lumbar region with neurogenic claudication; M48.07 Spinal stenosis, lumbosacral region
CPT/HCPCS: 72148

== ENCOUNTER 2022-09-25 12:00 | Outpatient (CLI) | payer OTHER, SELFPAY ==
[2022-09-25] VITALS (9 sets, daily range): BP systolic 180–215; BP diastolic 76–98; PULSE 58–71; RESP 12–20; TEMP 36.7; O2SAT 95–100
--- NOTE | 2022-09-25 12:01 | DI.RAD.S_ITS ---
PROCEDURE: PAIN L INTERLAMINAR/CAUDAL INJ INDICATIONS: SPONDYLOSIS COMPARISON: [facility], XA, PAIN L INTERLAMINAR/CAUDAL INJ, 02/12/2018, 14:04. FINDINGS: Fluoroscopic spot filming was performed to verify placement of spinal needles at the left L3-L4 interlaminar space level(s), as labeled on the films. Appropriate location(s) of the needle tip(s) was confirmed by injection of iodinated contrast. IMPRESSION: [place] needle at the left L3-L4 interlaminar space for translaminar epidural steroid injection. Dictated by: Courtney Leary MD, PhD on 09/25/2022 at 14:07 Approved by: Courtney Leary MD, PhD on 09/25/2022 at 14:08
[2022-09-25] MEDS: MIDAZOLAM 2 MG/2 ML VIAL 1 MG IV (13:23)
[2022-09-25] MEDS: BUPIVACAINE 0.25% (PF) VIAL 2 ML INJ (13:27)
[2022-09-25] MEDS: BETAMETHASONE 30 MG/5 ML MDV 6 MG INJ (13:28)
[2022-09-25] MEDS: DEXAMETHASONE 10 MG/ML VIAL 20 MG INJ (13:29)
[2022-09-25] MEDS: IOPAMIDOL 15 ML VIAL 3 ML INJ (13:29)
--- NOTE | 2022-09-25 13:36 | P.PCN_ITS ---
Date/Time/Diagnoses Date of procedure: 09/25/22 Time of procedure: 13:36 Pre-procedure diagnosis: 1. HNP WITH RADICULAR FEATURES, 2. MULTILEVEL CENTRAL STENOSIS, Post-procedure diagnosis: same Procedure Notes Procedure: 1. FLUOROSCOPICALLY GUIDED CONTRAST CONTROLLED INTERLAMINAR EPIDURAL STEROID INJECTION - L3/4 Indications: Maria M is referred by Dr. Corona for treatment of Bilateral Foraminal Stenosis L>R LE symptoms. Physician: Duncan Park Total Fluoroscopy time (seconds): 6 Total sedation minutes: 9 Complications: none Procedure in detail & Post-procedure care: FINDINGS Multilevel Central Spinal Stenosis with Nerve Root Compression DESCRIPTION OF PROCEDURE Fluoroscopically guided, contrast-controlled L3/4 translaminar epidural steroid injection. Following review of allergy and review of potential side effects and complications, including, but not necessarily limited to, infection, allergic reaction, local tissue breakdown, temporary as well as permanent nerve injury, paralysis, stroke and possible , the patient indicated that the patient understood and agreed to proceed. An informed consent document was signed by the patient, witnessed by a nurse, and placed in the patient's chart. Additionally, other treatment options including modalities, medications, and physical therapy were reviewed with the patient. After review of previous anaesthesic history and IV conscious sedation the patient was deemed safe to proceed with today?s procedure with IV conscious sedation as ASA class II designation. Safety time-out was performed to confirm patient ID, procedure to be performed and site of procedure. IV sedation was accomplished with a combination of 1mg of Versed was administered by the RN after DO order, titrated to patient comfort during the course of the procedure while the patient remained responsive to all verbal commands. In the prone position, following sterile prep and drape of the lumbar region, the L3/4 translaminar space was identified fluoroscopically. The skin was anesthetized via a 25-gauge, 1.5-inch needle with 1% lidocaine solution. At this point, a 22-gauge short bevel spinal needle was atraumatically introduced and advanced under fluoroscopic guidance into the region of the L3/4 translaminar space. Depth was confirmed on lateral view. Radiological data, including multiple fluoroscopic views of the lumbar spine, reveal a spinal needle at the L3/4 translaminar space. Lateral views then show placement of the needle in the epidural space. Subsequent views show contrast material flowing superiorly and inferiorly in the epidural space. No vascular or intrathecal uptake is observed. At this point, using loss of resistance technique with saline and air, the epidural space was entered. This was confirmed following negative aspiration with injection of approximately 1.5 cc of Isovue 200, showing excellent epidural flow without vascular or intrathecal uptake. At this point, 1cc of 1% lidocaine solution combined with 3cc or 20mg of dexamethasone and 6mg of betamethasone was injected without incident. The patient tolerated the procedure well without signs or symptoms of complications prior to transfer to the recovery area continued monitoring without incident. The patient was then transferred to the recovery area where they were observed for an appropriate period of time after the injection. The patient reported a VAS score of 6 prior to the procedure and a post- procedure VAS of 0. POST OP INSTRUCTIONS The patient was provided a Pain Log to continue to record their response to the target-specific procedure prior to follow-up visit with their referring physician. Additionally, specific post-injection care instructions and a contact number to our office were provided if concerns arise regarding possible complications associated with the procedure are suspected.
== END 2022-09-25 14:06 | disposition home or self-care (01) ==
PROVIDERS: PCP Family Medicine; Referring Provider Physical Medicine & Rehabilitation; Visit Provider Physical Medicine & Rehabilitation
DX: M51.16 Intervertebral disc disorders with radiculopathy, lumbar region; M48.061 Spinal stenosis, lumbar region without neurogenic claudication
CPT/HCPCS: 62323; J0702; J1100; J2250; J3490

== ENCOUNTER → 2024-11-20 10:20 | Outpatient (CLI) | payer OTHER, SELFPAY ==
--- NOTE | 2024-11-20 10:23 | DI.RAD.S_ITS ---
PROCEDURE: FL BARIUM SWALLOW INDICATIONS: Food sticks on swallowing COMPARISON: None. FINDINGS: Function: There is normal esophageal peristalsis. No elicited gastroesophageal reflux. There is delayed transit of a calibrated barium tablet through the hiatal hernia. Morphology: Air-contrast images demonstrate normal mucosal morphology. Single contrast views show no esophageal strictures, extrinsic mass effects, or diverticula. Limited images of the stomach demonstrate normal appearance. Prominent hiatal hernia. IMPRESSION: Hiatal hernia with delayed transit of calibrated barium tablet. Dictated by: Luz Marina Hampton M.D. on 11/20/2024 at 13:10 Approved by: Luz Marina Hampton M.D. on 11/20/2024 at 13:11
== END ==
PROVIDERS: PCP Family Medicine; Referring Provider Family Medicine; Visit Provider Family Medicine
DX: K44.9 Diaphragmatic hernia without obstruction or gangrene (principal); R13.10 Dysphagia, unspecified
CPT/HCPCS: 74220

== ENCOUNTER → 2024-12-14 15:20 | Outpatient (CLI) | payer OTHER, SELFPAY ==
--- NOTE | 2024-12-14 15:20 | DI.RAD.S_ITS ---
PROCEDURE: XR LUMBAR SPINE 5V INDICATIONS: chronic progressive LBP TECHNIQUE: 5 views of the lumbar spine were acquired, including bilateral oblique views. COMPARISON: [facility], CR, XR LUMBAR SPINE MIN 4V, 11/30/2020, 12:39. FINDINGS: Moderate levoscoliosis upper lumbar spine similar to the prior exam. Reversal of the normal lumbar lordosis centered at L2 mildly progressed. Moderate degenerative changes with disc space narrowing, osteophytes, facet osseous hypertrophic changes throughout the lumbar spine most notably L3-4, L4-5 and L5-S1 with suspected bilateral neural foraminal narrowing mildly progressed. Degenerative changes bilateral hips and sacroiliac joints progressed. Since the prior exam there has been mild decreased height and anterior wedging of L2 and L3 vertebral bodies, compression fractures age indeterminate. Moderate vascular calcifications of the aorta and iliac vessels progressed. Oblique images: No definitive radiographic evidence of pars defect. IMPRESSION: Degenerative changes progressed as discussed above. Compression fractures of L2 and L3 which have occurred in the interval age indeterminate. If symptoms persist or worsen, or there is high clinical suspicion of acute abnormality, MRI could be performed. Dictated by: Juan Diego Segura M.D. on 12/14/2024 at 22:29 Approved by: Juan Diego Segura M.D. on 12/14/2024 at 22:34
== END ==
PROVIDERS: PCP Family Medicine; Referring Provider Physical Medicine & Rehabilitation; Visit Provider Physical Medicine & Rehabilitation
DX: M47.817 Spondylosis without myelopathy or radiculopathy, lumbosacral region (principal); S32.029A Unspecified fracture of second lumbar vertebra, initial encounter for closed fracture; S32.039A Unspecified fracture of third lumbar vertebra, initial encounter for closed fracture; M48.061 Spinal stenosis, lumbar region without neurogenic claudication; M25.78 Osteophyte, vertebrae; M47.892 Other spondylosis, cervical region; M48.02 Spinal stenosis, cervical region; M70.62 Trochanteric bursitis, left hip; M75.41 Impingement syndrome of right shoulder; M51.26 Other intervertebral disc displacement, lumbar region; M48.062 Spinal stenosis, lumbar region with neurogenic claudication
CPT/HCPCS: 72110; 99214

== ENCOUNTER → 2025-01-14 14:07 | Outpatient (CLI) | payer OTHER, SELFPAY ==
--- NOTE | 2025-01-14 14:08 | DI.MRI.S_ITS ---
PROCEDURE: MR LUMBAR SPINE WO CON INDICATIONS: L2 and L3 comp completeression fracture on x-ray TECHNIQUE: Noncontrast sagittal T1 spin echo and T2 fast echo, sagittal STIR, and T2 fast spin echo through the lumbar spine. In cases with scoliosis, additional coronal T2 fast spin echo may be performed. COMPARISON: [facility], , MR LUMBAR SPINE WO CON, 05/08/2022, 15:36. FINDINGS: Image quality: Excellent. Alignment and Curvature: 5 mm anterolisthesis of L2 on L3, 5 mm anterolisthesis L3 on L4, 3 mm anterolisthesis L4 on L5. Alignment is unchanged. Bone Marrow: Marrow is of normal overall signal. No acute vertebral body compression fractures. Spinal Cord: Conus medullaris terminates at the L2-L3 level. Visualized cord demonstrates normal signal and size. Paraspinous Soft Tissues: No paravertebral masses. T12-L1: Stable findings. Disc bulge. Facet hypertrophy. No canal stenosis or foraminal stenosis. L1-L2: Stable findings. Chronic disc height loss. Disc bulge. Facet hypertrophy. No significant canal stenosis or foraminal stenosis. L2-L3: Stable findings. Severe disc height loss. Retrolisthesis. Associated disc bulge. Facet and ligament hypertrophy. Epidural lipomatosis. Mild canal stenosis. Mild bilateral foraminal stenosis. L3-L4: Stable findings. Retrolisthesis. Associated disc bulge. Prominent facet and ligament hypertrophy with anterior medial component of osteophytes. Epidural lipomatosis. Moderate canal stenosis. Moderate bilateral foraminal stenosis. L4-L5: Unchanged findings. Trace retrolisthesis. Disc bulge. Prominent facet and ligament hypertrophy. Mild canal stenosis. Mild right foraminal narrowing and moderate to severe left foraminal narrowing there is a degree of left foraminal L4 nerve root impingement. L5-S1: Findings. Disc bulge. Prominent facet hypertrophy. No central canal stenosis. No significant right foraminal narrowing. Moderate left foraminal narrowing. IMPRESSION: 1. Underlying multilevel facet arthropathy, prominent in the lower lumbar levels. Associated multilevel retrolisthesis. 2. Findings are stable. 3. Canal stenosis is mild at L2-L3, moderate at L3-L4, and mild at L4-L5. 4. Multilevel foraminal narrowing as described above, including moderate to severe left foraminal narrowing at L4-L5. Dictated by: Pratik Jim M.D. on 01/15/2025 at 12:11 Approved by: Pratik Jim M.D. on 01/15/2025 at 12:18
== END ==
PROVIDERS: PCP Family Medicine; Referring Provider Physical Medicine & Rehabilitation; Visit Provider Physical Medicine & Rehabilitation
DX: S32.020A Wedge compression fracture of second lumbar vertebra, initial encounter for closed fracture (principal); S32.030A Wedge compression fracture of third lumbar vertebra, initial encounter for closed fracture; M48.062 Spinal stenosis, lumbar region with neurogenic claudication; M47.816 Spondylosis without myelopathy or radiculopathy, lumbar region; M43.16 Spondylolisthesis, lumbar region
CPT/HCPCS: 72148